=== PATIENT | female | born 1990 | race Caucasian/White ===

== ENCOUNTER 2019-01-03 12:31 | Emergency (ER) | payer MEDICAID ==
[2019-01-03 17:29] VITALS: BP 130/71
== END 2019-01-03 17:29 | disposition home or self-care (01) ==
LOC: ED 12:31
DX: G44.209 Tension-type headache, unspecified, not intractable (principal)

== ENCOUNTER 2020-04-18 10:01 | Emergency (ER) | payer MEDICAID, SELFPAY ==
[~2020-04-18] VITALS: Ht 170.2 cm; Wt 90.7 kg
[2020-04-18 10:33] VITALS: Ht 170.2 cm; Wt 90.7 kg
[2020-04-18 12:18] VITALS: BP 111/73
== END 2020-04-18 12:18 | disposition home or self-care (01) ==
LOC: ED 10:01
DX: U07.1 COVID-19 (principal)
CPT/HCPCS: Q0092; U0003-CS